=== PATIENT | male | born 1975 | race African-American/Black ===

== ENCOUNTER 2017-05-08 05:24 | Day surgery (SDC) | payer OTHER ==
[2017-05-08 08:02] VITALS: BMI 27.1
[2017-05-08] MEDS ORDERED: ONDANSETRON 4 MG/2 ML VIAL IVPUSH PRN (09:22)
[2017-05-08] MEDS ORDERED: PROMETHAZINE HCL 25 MG/1 ML VIAL IVPUSH PRN (09:22)
[2017-05-08] MEDS ORDERED: LACTATED RINGERS SOLUTION 1,000 ML IV SCH (09:30)
[2017-05-08] MEDS ORDERED: BUPIVACAINE HCL/PF 0.5% (5MG/ML) 10 ML VIAL ONE (09:33)
[2017-05-08] MEDS ORDERED: PROPOFOL 20 ML ONE (09:33)
[2017-05-08] MEDS ORDERED: GLYCOPYRROLATE 0.2 MG/1 ML VIAL ONE (09:34)
[2017-05-08] MEDS ORDERED: MIDAZOLAM HCL 2 MG/2 ML SINGLE DOSE VIAL ONE (09:34)
[2017-05-08] MEDS ORDERED: ceFAZolin SODIUM 1 GM VIAL ONE (09:58)
[2017-05-08] MEDS ORDERED: ceFAZolin SODIUM 1 GM VIAL IVPB ONE (10:02)
[2017-05-08] MEDS ORDERED: DEXAMETHASONE SOD PHOSPHATE 4 MG/1 ML VIAL ONE (10:07)
[2017-05-08] MEDS ORDERED: KETOROLAC TROMETHAMINE 30 MG/1 ML VIAL ONE (10:07)
[2017-05-08] MEDS ORDERED: BUPIVACAINE HCL/PF 0.5% (5MG/ML) 10 ML VIAL IJ ONE (10:27)
--- NOTE | 2017-05-08 10:41 | OP ---
Operative Note - Note: Operative Date: 05/08/17 Pre-Operative Diagnosis: left knee MM tear Operation: left knee arthroscopy, partial medial meniscectomy Post-Operative Diagnosis: Same as Pre-op Surgeon: Cameron Dowell Anesthesiologist/CLERK FUNERAL DETAIL: Juan Magallon Anesthesia: General, Local Specimens Removed: shavings Estimated Blood Loss (mls): 0 Drains, Volume Out (mls): 0 Blood Volume Replaced (mls): 0 Fluid Volume Replaced (mls): 500 Operative Report Dictated: Yes
--- NOTE | 2017-05-08 11:47 | OP ---
DATE OF OPERATION: 05/08/2017 PREOPERATIVE DIAGNOSIS: Left knee medial meniscus tear. POSTOPERATIVE DIAGNOSIS: Left knee medial meniscus tear. PROCEDURE: Left knee arthroscopy, partial medial meniscectomy, and osteoarthritis. SURGEON: Brynn Bowman MD ASSISTANTS: None. ANESTHESIOLOGIST: Chas Magallon MD ANESTHESIA: LMA anesthesia, local injection of 20 mL 0.50% Marcaine. DRAINS: None. COMPLICATIONS: None. BLOOD LOSS: None. BLOOD GIVEN: None. FLUID REPLACEMENT: 500 mL SPECIMENS: Arthroscopic shavings. INDICATIONS FOR PROCEDURE: This patient is a 42-year-old male with a preoperative diagnosis of left knee pain and a medial meniscus tear. After understanding the potential risks, complications, alternatives, benefits of surgery versus nonsurgical treatment, the patient elected to undergo this procedure. DESCRIPTION OF PROCEDURE: The patient was brought to the operating room. Peripheral IV placed. IV sedation given. One gram of IV Ancef was given. LMA anesthesia was induced. He was placed into the arthroscopy position. C-clamp leg yu with ample padding throughout. The left lower extremity was prepped and draped in the usual sterile fashion, elevated, exsanguinated with an Esmarch bandage and tourniquet inflated to 275 mmHg. A superior medial outflow portal was established. A lateral portal was established. The arthroscope was introduced into the joint. A medial portal was established under direct visualization. Diagnostic arthroscopy was performed. Patient was seen to have a complex tear of the posterior horn of the medial meniscus. A combination of straight basket forceps and curved shaver was used to do a partial medial meniscectomy. The patient had grade 1 chondromalacia changes of the medial tibial plateau. None of the medial femoral condyle. The intercondylar notch looked good. The ACL looked good. In the lateral compartment, the lateral femoral condyle and lateral tibial plateau both looked good. The lateral meniscus looked good. Next, our attention was turned to the patellofemoral joint where the patient did have some areas of grade 4 chondromalacia on the medial femoral trochlear groove. Photographs were taken. There was no arthritis in the mid-aspect or the lateral aspect, and the undersurface of the patella looked fine. The area was gently debrided. The area was copiously irrigated and washed out. All instrumentation, fluid, and debris were removed. The arthroscopy portals were closed with 3-0 nylon sutures, and 20 mL of 0.50% Marcaine were introduced into the joint. The area was then washed and dried, covered with Xeroform, 4 x 4 gauze, Webril, and an Lazaro bandage. The patient was brought to the ambulatory recovery room in stable condition. Tourniquet was taken down after a total tourniquet time of 15 minutes. There were no complications during the case, and the patient tolerated the procedure quite well. BRYNN BOWMAN M.D. [id number]
[2017-05-08 12:35] VITALS: TEMP 98.2
[2017-05-08 13:08] VITALS: BP 127/67; PULSE 73
--- NOTE | 2017-05-09 15:19 | PATH ---
Surgical Pathology Report Patient Name: MIRNA PARKER [facility]. Rec. #: [id number] /Age/Gender: 1975 (Age: 42) / M Account: [id number] Location: [facility] Taken: 05/08/2017 Received: 05/08/2017 Reported: 05/09/2017 Physicians: Cameron Dowell M.D. Specimen(s) Received LEFT KNEE SHAVINGS Clinical History Medial meniscectomy tear left knee Final Diagnosis SOFT TISSUE, LEFT KNEE, ARTHROSCOPIC SHAVINGS: SYNOVIUM AND FIBROCARTILAGE WITH MYXOHYALINE DEGENERATION. Electronically Signed Moise Soler M.D. Gross Description Received in formalin, labeled "left knee shavings" is a 3.5 x 2.5 x 0.3 cm aggregate of larry-yellow soft tissue fragments. A auto claim representative portion is submitted in one cassette. /05/08/201705/08/2017
== END 2017-05-08 13:05 | disposition home or self-care (01) ==
LOC: JASU-SURG 05:24
PROVIDERS: ATTEND Orthopaedic Surgery
PROC: 0SBD4ZZ Excision of Left Knee Joint, Percutaneous Endoscopic Approach (ICD-10-PCS; principal; 2017-05-08 09:00)
DX: S83.232A Complex tear of medial meniscus, current injury, left knee, initial encounter (principal); M17.12 Unilateral primary osteoarthritis, left knee; Y93.9 Activity, unspecified; Y92.9 Unspecified place or not applicable; Y99.9 Unspecified external cause status
CPT/HCPCS: 88304-TC; 94760

== ENCOUNTER 2021-02-01 07:52 | Emergency (ER) | payer OTHER ==
[2021-02-01 08:00] VITALS: BP 150/90; PULSE 98; TEMP 98; BMI 27.1
[2021-02-01] MEDS ORDERED: KETOROLAC TROMETHAMINE 30 MG/1 ML VIAL IM ONE (08:22)
[2021-02-01] MEDS ORDERED: KETOROLAC TROMETHAMINE 30 MG/1 ML VIAL ONE (08:30)
== END 2021-02-01 08:45 | disposition home or self-care (01) ==
LOC: JER 07:52
PROC: 3E0233Z Introduction of Anti-inflammatory into Muscle, Percutaneous Approach (ICD-10-PCS; principal; 2021-02-01)
DX: K05.6 Periodontal disease, unspecified (principal); K02.9 Dental caries, unspecified
CPT/HCPCS: 99284-25

== ENCOUNTER 2021-02-08 07:47 | Emergency (ER) | payer OTHER ==
[2021-02-08 07:55] VITALS: BP 121/76; PULSE 72; TEMP 97.9; BMI 27.1
[2021-02-08] MEDS ORDERED: LIDOCAINE HCL 2% JELLY (30 ML/TUBE) TP ONE (08:32)
[2021-02-08] MEDS ORDERED: LIDOCAINE HCL 2% JELLY 10 ML CARTRIDGE ONE (08:34)
== END 2021-02-08 09:29 | disposition home or self-care (01) ==
LOC: JERFT 07:47
DX: K02.9 Dental caries, unspecified (principal); K08.89 Other specified disorders of teeth and supporting structures
CPT/HCPCS: 99283-25

== ENCOUNTER 2021-06-23 05:05 | Emergency (ER) | payer OTHER ==
[2021-06-23 05:45] VITALS: BMI 27.1
[2021-06-23] MEDS ORDERED: SODIUM CHLORIDE 0.9% 500 ML INFUS.BAG IV ONE (05:57)
[2021-06-23] MEDS ORDERED: MECLIZINE HCL 25 MG TABLET (FP) PO ONE (07:45)
[2021-06-23] MEDS ORDERED: MECLIZINE HCL 25 MG TABLET (FP) ONE (07:53)
[2021-06-23 07:57] LABS: HEMATOCRIT 39.2 % (35.4-49); HEMOGLOBIN 12.5 GM/dL (11.7-16.9); MCH 21.2 pg (25.7-33.7); MEAN CELL VOLUME 66.4 fl (80-96); MEAN PLT VOLUME 8.4 fl (7.5-11.1); PLATELET COUNT 251 10^3/uL (134-434); RDW 15.8 % (11.9-15.9); WHITE BLOOD COUNT 4.5 K/mm3 (4.0-10.0)
[2021-06-23 08:26] LABS: CALCIUM 8.2 mg/dL (8.5-10.1)
[2021-06-23 08:27] LABS: ALBUMIN 3.4 g/dl (3.4-5.0); BLOOD UREA NITROGEN 14.4 mg/dL (7-18); MAGNESIUM 2.1 mg/dL (1.8-2.4)
[2021-06-23 08:30] LABS: CREATININE 0.7 mg/dL (0.55-1.3); PHOSPHOROUS 3.3 mg/dL (2.5-4.9)
[2021-06-23 08:31] LABS: BILIRUBIN,TOTAL 0.4 mg/dL (0.2-1)
[2021-06-23 08:32] LABS: TOT PROT 6.6 g/dl (6.4-8.2)
[2021-06-23 08:48] LABS: PH,URINE 7.5 (5.0-8.0); URINE APPEARANCE CLEAR; URINE BILIRUBIN NEGATIVE (NEGATIVE); URINE COLOR YELLOW; URINE GLUCOSE (UA) NEGATIVE (NEGATIVE); URINE KETONE NEGATIVE (NEGATIVE); URINE LEUK ESTERASE NEGATIVE (NEGATIVE); URINE NITRITE NEGATIVE (NEGATIVE); URINE PROTEIN NEGATIVE (NEGATIVE); URINE UROBILINOGEN 0.2 mg/dL (0.2-1.0)
[2021-06-23 09:26] VITALS: BP 119/83; PULSE 55; TEMP 97.7
== END 2021-06-23 09:35 | disposition home or self-care (01) ==
LOC: JER 05:05
DX: R42 Dizziness and giddiness (principal)
CPT/HCPCS: 36415; 70450-TC; 80053; 81003; 83735; 84100; 85027; 93005; 93010; 99284-25

== ENCOUNTER 2021-10-26 11:45 | Emergency (ER) | payer OTHER ==
[2021-10-26 11:59] VITALS: BP 139/90; PULSE 84; TEMP 98.1; BMI 26.4
== END 2021-10-26 13:03 | disposition home or self-care (01) ==
LOC: JERFT 11:45
DX: S89.92XA Unspecified injury of left lower leg, initial encounter (principal); W19.XXXA Unspecified fall, initial encounter; Y92.9 Unspecified place or not applicable
CPT/HCPCS: 73562-TC-LT-FY; 99284-25

== ENCOUNTER 2022-02-03 01:44 | Emergency (ER) | payer OTHER ==
[2022-02-03 02:07] VITALS: BP 121/86; PULSE 70; TEMP 98.4; BMI 28.8
[2022-02-03 04:05] LABS: BASO % 0.5 % (0-2.0); EOS % 0.8 % (0-4.5); HEMATOCRIT 43.7 % (35.4-49); LYMPH % 26.8 % (8-40); MCH 20.8 pg (25.7-33.7); MEAN PLT VOLUME 7.2 fl (7.5-11.1); MONO % 9.1 % (3.8-10.2); NEUT % 62.8 % (42.8-82.8); PLATELET COUNT 282 10^3/uL (134-434); RBC 6.72 M/mm3 (4.00-5.60); RDW 16.1 % (11.9-15.9); WHITE BLOOD COUNT 6.3 K/mm3 (4.0-10.0)
[2022-02-03 04:25] LABS: BLOOD UREA NITROGEN 8.3 mg/dL (7-18); CALCIUM 9.1 mg/dL (8.5-10.1); MAGNESIUM 2.4 mg/dL (1.8-2.4)
[2022-02-03 04:28] LABS: CREATININE 0.8 mg/dL (0.55-1.3); PHOSPHOROUS 3.6 mg/dL (2.5-4.9)
[2022-02-03 04:30] LABS: BILIRUBIN,TOTAL 0.6 mg/dL (0.2-1); TOT PROT 7.7 g/dl (6.4-8.2)
[2022-02-03 08:21] LABS: ANISOCYTOSIS 3+
== END 2022-02-03 06:37 | disposition home or self-care (01) ==
LOC: JER 01:44
DX: R41.9 Unspecified symptoms and signs involving cognitive functions and awareness (principal); R07.9 Chest pain, unspecified
CPT/HCPCS: 36415; 70450-TC; 71045-TC-FY; 80053; 83735; 84100; 84484; 85025; 93005; 93010; 99285-25

== ENCOUNTER 2023-02-21 08:05 | Emergency (ER) | payer OTHER ==
[2023-02-21 08:29] VITALS: TEMP 98.6; BMI 27.6
[2023-02-21 10:11] VITALS: BP 112/78; PULSE 64; RESP 20
== END 2023-02-21 10:37 | disposition home or self-care (01) ==
LOC: JER 08:05
DX: R23.4 Changes in skin texture (principal)
CPT/HCPCS: 99282-25